=== PATIENT | female | born 1965 | race American Indian/Alaskan Native ===

== ENCOUNTER 2019-02-08 10:31 | Emergency (ER) | payer OTHER ==
[2019-02-08] MEDS ORDERED: ASPIRIN 325 MG TAB PO ONE (10:51)
--- NOTE | 2019-02-08 11:17 | Emergency Department Report ---
ED Palpitations HPI - General Chief Complaint: Arrhythmia/Palpitations Stated Complaint: RAPID HEART RATE Time Seen by Provider: 02/08/19 11:11 Source: patient Mode of arrival: Ambulatory Limitations: No Limitations - History of Present Illness Initial Comments: Mrs. Grimes is a very pleasant 53-year-old female with history of hypertension and diabetes mellitus who presents with a rapid heartbeat. 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 While walking to the unit, she noticed that her heart was beating quite fast. She and her doctor colleague measured her heart rate to be 133 bpm. No previous history of heart disease. No previous history of arrhythmia. She takes nifedipine 30 mg in the morning which she took today. She also takes metformin 500 mg. After eating garlic this morning at home prior, she felt hot in her chest briefly. After drinking water the hotness in her chest subsided. No recent travel. No leg pain. No use of hormone therapy. The symptoms started sudden onset 10 AM. No history of thyroid disease. She's been in her normal state of health until the onset of rapid heartbeat this morning. She has been drinking more coffee more so than normal. She is drinking approximately 16 ounces per day. She does stay hydrated. She denies dark stools. She has been menopausal for the last [address] [place] ALVARENGA Complaint: rapid heart beat, palpitations -: Sudden, This morning Context: occured during exertion Arrythmia History: other (no previous history of arrhythmia or rapid heartbeat) Associated Symptoms: denies other symptoms Treatments Prior to Arrival: other (none) - Related Data Home Medications Medication Instructions Recorded Confirmed Last Taken Aspirin [Aspirin BABY CHEW TAB] 81 mg PO QDAY 04/12/15 04/12/15 04/12/15 Atenolol [Tenormin] 25 mg PO DAILY 04/12/15 04/12/15 04/12/15 Previous Rx's Medication Instructions Recorded Last Taken Type Cyclobenzaprine HCl [Flexeril 5 MG 5 mg PO TID #20 tab 04/12/15 Unknown Rx TAB] Diclofenac EC [Voltaren] 25 mg PO Q8HR #30 tablet 04/12/15 Unknown Rx HYDROcodone/APAP 5-325 [Wilson 1 each PO Q6HR PRN #10 tablet 11/12/18 Unknown Rx 5/325] Metformin HCl [Glucophage] 1,000 mg PO QDAY #30 tab 01/30/18 Unknown Rx Allergies Allergy/AdvReac Type Severity Reaction Status Date / Time No Known Allergies Allergy Unverified 04/12/15 15:54 ED Review of Systems ROS: Stated complaint: RAPID HEART RATE Other details as noted in HPI Comment: All other systems reviewed and negative Constitutional: denies: fever, malaise Respiratory: denies: cough, shortness of breath Cardiovascular: chest pain (felt hot in her chest after eating garlic this morning), palpitations Gastrointestinal: denies: abdominal pain, nausea, vomiting Skin: denies: rash, lesions ED Past Medical Hx - Past Medical History Previous Medical History?: Yes Hx Hypertension: Yes Hx Diabetes: Yes - Surgical History Past Surgical History?: Yes Additional Surgical History: x 3 - Family History Family history: hypertension - Social History Smoking Status: Never Smoker Substance Use Type: None Other Social History: Occupation: optometrist assistant for the [employer] - Medications Home Medications: Home Medications Medication Instructions Recorded Confirmed Last Taken Type Aspirin [Aspirin BABY CHEW TAB] 81 mg PO QDAY 04/12/15 04/12/15 04/12/15 History Atenolol [Tenormin] 25 mg PO DAILY 04/12/15 04/12/15 04/12/15 History Cyclobenzaprine HCl [Flexeril 5 MG 5 mg PO TID #20 tab 04/12/15 Unknown Rx TAB] Diclofenac EC [Voltaren] 25 mg PO Q8HR #30 tablet 04/12/15 Unknown Rx HYDROcodone/APAP 5-325 [Wilson 1 each PO Q6HR PRN #10 tablet 01/30/18 Unknown Rx 5/325] Metformin HCl [Glucophage] 1,000 mg PO QDAY #30 tab 01/30/18 Unknown Rx ED Physical Exam - General Limitations: No Limitations General appearance: alert, in no apparent distress - Head Head exam: Present: atraumatic, normocephalic - Eye Eye exam: Present: normal appearance - ENT ENT exam: Present: mucous membranes moist - Neck Neck exam: Present: normal inspection - Respiratory Respiratory exam: Present: normal lung sounds bilaterally. Absent: respiratory distress - Cardiovascular Cardiovascular Exam: Present: normal rhythm, tachycardia, normal heart sounds. Absent: systolic murmur, diastolic murmur, rubs, gallop - GI/Abdominal GI/Abdominal exam: Present: soft, distended, normal bowel sounds, hernia (small soft umbilical hernia and large surgical scar). Absent: tenderness, guarding, rebound - Extremities Exam Extremities exam: Present: normal inspection - Neurological Exam Neurological exam: Present: alert, oriented X3 - Psychiatric Psychiatric exam: Present: normal affect, normal mood - Skin Skin exam: Present: warm, dry, intact, normal color. Absent: rash ED Course Vital Signs 02/08/19 02/08/19 02/08/19 10:48 11:03 11:07 Temperature 98.3 F Pulse Rate 144 H 146 H 132 H Respiratory 16 14 25 H Rate Blood Pressure 185/109 Blood Pressure 173/108 [Left] O2 Sat by Pulse 95 99 99 Oximetry 02/08/19 02/08/19 02/08/19 11:16 11:32 11:46 Temperature Pulse Rate 126 H 128 H 117 H Respiratory 20 25 H 21 Rate Blood Pressure 173/108 173/108 165/100 Blood Pressure [Left] O2 Sat by Pulse 99 99 Oximetry 02/08/19 02/08/19 02/08/19 12:24 12:30 12:46 Temperature Pulse Rate 119 H 114 H 118 H Respiratory 20 20 24 Rate Blood Pressure 165/100 168/104 153/89 Blood Pressure [Left] O2 Sat by Pulse 97 99 Oximetry 02/08/19 02/08/19 13:44 13:45 Temperature Pulse Rate 107 H 103 H Respiratory 22 16 Rate Blood Pressure 153/89 148/92 Blood Pressure [Left] O2 Sat by Pulse 99 98 Oximetry ED Medical Decision Making - Lab Data Result diagrams: 02/08/19 11:11 02/08/19 11:11 - EKG Data 02/08/19 11:17 EKG obtained 1044 Sinus tachycardia rate 140 beats a minute left axis deviation normal QT interval enlarged P waves indicating atrial enlargement no signs of ischemia no significant ST elevation - Radiology Data Radiology results: report reviewed CT abdomen and pelvis revealed cholelithiasis without CT evidence of acute cholecystitis, enlarged fatty liver colonic diverticulosis multiple ventral hernias CT angiogram: No evidence of pulmonary embolism, no acute findings - Medical Decision Making Mrs. Grimes presents with significant tachycardia and palpitations. EKG reveals sinus tachycardia. Differential diagnosis includes dehydration, sepsis, hyperthyroidism, myocardial ischemia, pulmonary embolism, medication withdrawal, anxiety Troponin x 2 negative. D-dimer negative. With IV fluid: Tachycardia improved. Abnormally elevated hemoglobin and hematocrit with mild metabolic acidosis both correspond to the diagnosis of dehydration. No evidence of pulmonary embolus or ACS. TSH is normal. Strongly encouraged follow-up with Dr. Be within the next few days. Critical care attestation.: If time is entered above; I have spent that time in minutes in the direct care of this critically ill patient, excluding procedure time. ED Disposition Clinical Impression: Tachycardia, Palpitations Disposition: DC- TO HOME OR SELFCARE Is pt being admited?: No Does the pt Need Aspirin: No Condition: Stable Instructions: Atrial Tachycardia (ED) Referrals: CLARE BE MD [Staff Physician] - 3-5 Days Forms: Work/School Release Form(ED)
[2019-02-08 11:31] LABS: Basophils % (Auto) 0.5 % (0.0-1.8); Eosinophils % (Auto) 0.2 % (0.0-4.3); Hematocrit 46.7 % (30.3-42.9); Hemoglobin 16.3 gm/dl (10.1-14.3); Lymphocytes # (Auto) 2.2 K/mm3 (1.2-5.4); Lymphocytes % (Auto) 29.9 % (13.4-35.0); Mean Corpuscular HGB Conc 35 % (30-34); Mean Corpuscular Volume 82 fl (79-97); Monocytes # (Auto) 0.6 K/mm3 (0.0-0.8); Monocytes % (Auto) 8.3 % (0.0-7.3); Platelet Count 263 K/mm3 (140-440); Red Blood Count 5.67 M/mm3 (3.65-5.03); Red Cell Distribution Width 14.5 % (13.2-15.2)
[2019-02-08 11:55] LABS: BUN/Creatinine Ratio 13; Blood Urea Nitrogen 8 mg/dL (7-17); Calcium 9.7 mg/dL (8.4-10.2); Hemolysis Index 5
--- NOTE | 2019-02-08 12:31 | XRay Report ---
CHEST 1 VIEW 02/08/2019 11:06 AM INDICATION / CLINICAL INFORMATION: Chest Pain. COMPARISON: None available. FINDINGS: SUPPORT DEVICES: None. HEART / MEDIASTINUM: No significant abnormality. LUNGS / PLEURA: Lung volumes are reduced with probable bibasilar atelectasis. The upper lungs are lois ar. No significant pleural effusion. No pneumothorax. ADDITIONAL FINDINGS: No significant additional findings. IMPRESSION: Low lung volumes with probable bibasilar atelectasis. A CT of the chest is pending. Signer Name: Charly Acosta MD Signed: 02/08/2019 12:27 PM Workstation Name: [id number]
[2019-02-08] MEDS ORDERED: SODIUM CHLORIDE 0.9% 1000 ML 1,000 ML IV ONE (13:28)
--- NOTE | 2019-02-08 13:49 | Cat Scan Report ---
CTA CHEST WITH IV CONTRAST INDICATION: severe tachycardia. TECHNIQUE: Axial CT images were obtained through the chest after injection of 100 mL Omnipaque 350 IV contrast. 3 plane MIP reconstructions were produced. All CT scans at this location are performed using CT dose reduction for ALARA by means of automated exposure control. COMPARISON: None available. FINDINGS: Pulmonary Arteries: No pulmonary emboli. Lungs: There is mild dependent atelectasis in the posterior aspect of the lung bases without focal co nsolidation. There is no pleural effusion or pneumothorax. Trachea and Bronchi: No significant abnormality. Heart and Pericardium: No significant abnormality. Vasculature: No significant abnormality. Lymphatics: No lymphadenopathy. Additional Findings: None. Upper Abdomen: No acute findings. Skeletal Structures: No significant osseous abnormality. IMPRESSION: 1. No CT evidence for pulmonary embolism. 2. No acute findings. Signer Name: Brendan Panda MD Signed: 02/08/2019 1:44 PM Workstation Name: [id number]
--- NOTE | 2019-02-08 13:51 | Cat Scan Report ---
CT ABDOMEN AND PELVIS WITH CONTRAST INDICATION: abdominal distention. COMPARISON: 2 views of the abdomen from 01/30/2018. TECHNIQUE: Axial, coronal and sagittal CT imaging of the abdomen and pelvis was performed after inje ction of 100 mL Omnipaque [address] scans at this location are performed using CT dose re duction for ALARA by means of automated exposure control. FINDINGS: LOWER CHEST: No significant abnormality. LIVER: There is generalized steatosis. The liver is enlarged and measures 21 cm in length. No other s ignificant abnormality is seen. BILIARY: Multiple gallstones are noted without evidence of acute cholecystitis. There is no biliary d uctal dilatation. PANCREAS: No significant abnormality. SPLEEN: No significant abnormality. ADRENALS: No significant abnormality. KIDNEYS AND URETERS: No significant abnormality. GI TRACT: No significant abnormality is seen along the stomach or small bowel. There is generalized c olonic diverticulosis without evidence of diverticulitis or other significant abnormalities of the co berta. The appendix is unremarkable. Rectus diastasis is noted with multiple ventral hernias containing fat. The largest hernia measures 6.7 cm in transverse dimension. PERITONEUM: No free fluid. No free air. No fluid collection. LYMPH NODES: No significant adenopathy. VASCULATURE: No significant abnormality. URINARY BLADDER: No significant abnormality. REPRODUCTIVE ORGANS: No significant abnormality. ADDITIONAL FINDINGS: None. SKELETAL SYSTEM: Degenerative changes are seen along the lumbar spine and SI joints without an acute abnormality. IMPRESSION: 1. No acute abnormality of the abdomen or pelvis. 2. Cholelithiasis without CT evidence of acute cholecystitis. 3. Additional findings as above. Signer Name: Charly Acosta MD Signed: 02/08/2019 1:47 PM Workstation Name: [id number]
[2019-02-08 15:06] VITALS: BP 137/86
== END 2019-02-08 14:54 | disposition home or self-care (01) ==
LOC: ED 10:31
DX: R00.0 Tachycardia, unspecified (principal); R00.2 Palpitations; E86.0 Dehydration
CPT/HCPCS: 36415; 71045; 71275; 74177; 80048; 83880; 84443; 84484; 85025; 85379; 93005; 93010; 96360; 99285; J7030; Q9967

== ENCOUNTER 2019-02-11 09:06 | Inpatient (IN) | payer OTHER ==
--- NOTE | 2019-02-11 09:39 | XRay Report ---
CHEST 2 VIEWS INDICATION / CLINICAL INFORMATION: Chest pain since . COMPARISON: None available. FINDINGS: SUPPORT DEVICES: None. HEART / MEDIASTINUM: No significant abnormality. LUNGS / PLEURA: Lung volumes are reduced with probable bibasilar atelectasis. The lungs are otherwise clear. No significant pleural effusion. No pneumothorax. ADDITIONAL FINDINGS: No significant additional findings. IMPRESSION: Reduced lung volumes with probable bibasilar atelectasis. Signer Name: Charly Acosta MD Signed: 02/11/2019 9:34 AM Workstation Name: [id number]
[2019-02-11 09:54] LABS: Basophils % (Auto) 0.4 % (0.0-1.8); Eosinophils % (Auto) 0.1 % (0.0-4.3); Hematocrit 46.2 % (30.3-42.9); Hemoglobin 15.9 gm/dl (10.1-14.3); Lymphocytes # (Auto) 1.4 K/mm3 (1.2-5.4); Lymphocytes % (Auto) 23.4 % (13.4-35.0); Mean Corpuscular HGB Conc 34 % (30-34); Mean Corpuscular Volume 84 fl (79-97); Monocytes # (Auto) 0.4 K/mm3 (0.0-0.8); Platelet Count 255 K/mm3 (140-440); Red Blood Count 5.52 M/mm3 (3.65-5.03); Red Cell Distribution Width 14.7 % (13.2-15.2)
[2019-02-11 10:19] LABS: BUN/Creatinine Ratio 13; Blood Urea Nitrogen 8 mg/dL (7-17); Calcium 9.9 mg/dL (8.4-10.2); Hemolysis Index 10
[2019-02-11] MEDS ORDERED: ASPIRIN 325 MG TAB PO ONE (11:42)
[2019-02-11] MEDS ORDERED: NITROGLYCERIN 0.4 MG TAB SUBL SL ONE (11:42)
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
[2019-02-11 11:47] LABS: Bilirubin,Urine NEG (Negative); Blood,Urine NEG (Negative); Color,Urine Colorless (Yellow); Protein,Urine <15 mg/dL mg/dL (Negative); RBC,Urine < 1.0 /HPF (0.0-6.0); Urobilinogen,Urine < 2.0 mg/dL (<2.0); WBC,Urine < 1.0 /HPF (0.0-6.0)
[2019-02-11 12:00] LABS: Alanine Aminotransferase 24 units/L (7-56); Albumin 4.9 g/dL (3.9-5)
[2019-02-11 12:01] LABS: Bilirubin,Direct < 0.2 mg/dL (0-0.2)
[2019-02-11 12:07] LABS: INR 0.97 (0.87-1.13); Partial Thromboplastin Time 25.9 Sec. (24.2-36.6)
[2019-02-11 12:11] LABS: Amphetamine Screen,Urine PRESUMPTIVE NEGATIVE; Benzodiazepines Screen,Urine PRESUMPTIVE NEGATIVE; Cannabinoid Screen,Urine PRESUMPTIVE NEGATIVE; Cocaine Screen,Urine PRESUMPTIVE NEGATIVE; Methadone Screen,Urine PRESUMPTIVE NEGATIVE; Opiate Screen,Urine PRESUMPTIVE NEGATIVE
[2019-02-11] MEDS ORDERED: MORPHINE 2 MG/1 ML INJ IV PRN (21:28)
--- NOTE | 2019-02-11 21:28 | History and Physical Report ---
History of Present Illness Date of examination: 02/11/19 Date of admission: 02/11/19 12:22 Chief complaint: Chest pain for one day History of present illness: Patient is a 53-year-old lady who has a history of hypertension and diabetes mellitus was initially seen in this hospital's ED on 02/08/2019 for palpitation and tachycardia. Chest x-ray shows bilateral basal atelectasis for which CT scan of the chest was ordered. Findings were unremarkable. CTA was negative for any PE. CT abdomen and pelvis showed cholelithiasis without any cholecystitis. EKG shows sinus tachycardia at 133/ minutes. Blood pressure on admission at the time was 165/100. Patient was treated and appropriate medications with control of her blood pressure and heart rate. Discharge from the ED and followed up with me thereafter on 02/08/2019. Blood pressure on home was still elevated to 160s with intermittent palpitations and tachycardia. Patient was commenced on Cardizem and metoprolol and was advised to follow with me within 3 days in the office with blood pressure heart rate log. Patient stopped her metoprolol yesterday as blood pressure was consistently normal within 118 -120s and heart rate in the 70s. Patient stopped her metoprolol stating that she felt that a blood pressure in the 118s was too low. Presented to the emergency department today, 02/11/19 with tachycardia and hypertension of 228/135 and HR 90s with associated chest pain that was dull in nature. No rigidity. Intermittent but currently chest pain-free. Denies any diaphoresis. Has associated shortness of breath. Chest x-ray that showed bibasilar atelectasis was noted in the previous discharge with a normal CT of the chest. Patient was admitted today for further evaluation and stress test that was not done previously. Past History Past Medical History: diabetes, hypertension Past Surgical History: No surgical history Social history: denies: smoking, alcohol abuse, prescription drug abuse Family history: no significant family history Medications and Allergies Allergies Allergy/AdvReac Type Severity Reaction Status Date / Time No Known Allergies Allergy Unverified 04/12/15 15:54 Home Medications Medication Instructions Recorded Confirmed Last Taken Type Aspirin [Aspirin BABY CHEW TAB] 81 mg PO QDAY 04/12/15 02/11/19 02/11/19 History AtorvaSTATin [Lipitor] 10 mg PO QHS 02/11/19 02/11/19 Unknown History Metformin HCl [Glucophage] 500 mg PO BID 02/11/19 02/11/19 02/11/19 History Metoprolol Xl [Metoprolol 100 mg PO QDAY 02/11/19 02/11/19 02/11/19 History SUCCINATE ER TAB] dilTIAZem CD [Cardizem Cd] 120 mg PO DAILY 02/11/19 02/11/19 02/10/19 History Active Meds: Active Medications Pneumococcal Polyvalent Vaccine (Pneumovax 23) 0.5 ml IM .ONCE ONE Stop: 02/12/19 12:01 Review of systems Constitutional: Well Nourished and Well developed. Head: NC/ AT Eyes: Denies any visual impairments. No discharge from the eyes Nose: Denies any rhinorrhea or epistaxis Throats: Denies any post nasal drainage. Ears: Denies any hearing deficits Cardiovascular system: As chest pain, with shortness of breath, no orthopnea, paroxysmal nocturnal dyspnea, or palpitation. Respiratory system: Denies any cough, difficulty breathing, wheezing, pleuritic chest pain, Gastrointestinal system: Denies any abdominal pain, nausea vomiting, hematemesis or melena. Neurological system: Denies any headache, slurred speech, facial droop, lateralizing weakness Genitalia system: Denies any dysuria, urinary frequency or urgency, urethral discharge Skin: No rashes, hyperpigmented spots. Hematological: Denies any cervical tenderness hemorrhages or petechia. Immunological: Denies any multiple septic spots, Lymphatic: Denies any generalized lymphadenopathy. Endocrine: Denies any polyuria, polydipsia, polyphagia. No heat or cold intolerance. Musculoskeletal system: No joint pain or swelling. Psych: No visual, tactile, auditory or hallucination Exam - Physical Exam Narrative exam: Constitutional: Well-nourished well-developed. In no distress Head: Normocephalic atraumatic Eyes: Pupils are equal round and reactive to light Nose: No enlarged turbinates, no septal deviation. Mouth: Moist mucous membranes. Neck: Supple no thyromegaly. No bruit. No JVD Heart: Regular rate and rhythm, S1-S2 normal. No rubs murmurs or gallop Lungs: Clear to auscultation bilaterally. no rales or rhonchi Abdomen: Soft, nontender. Bowel sound are present. Extremities: No edema, no cyanosis, no clubbing. Neuro: Alert oriented Oriented x3. No focal sensory or motor deficit. Skin: No rashes or hyperpigmented spots Musculoskeletal system: No joint pain or swelling Hematological: No petechia or subcutanous hemorrhages. Immunological: No multiple septic spots on the skin Lymphatic: No generalized lymphadenopathy Psychiatry: Euthymic. Calm. - Constitutional Vitals: Temp Pulse Resp BP Pulse Ox 98.2 F 78 16 120/83 98 02/11/19 20:12 02/11/19 20:12 02/11/19 20:12 02/11/19 20:12 02/11/19 20:12 Results - Labs CBC & Chem 7: 02/11/19 09:30 02/11/19 09:30 Labs: Abnormal lab results 02/11/19 02/11/19 02/11/19 Range/Units 09:30 09:30 11:04 RBC 5.52 H (3.65-5.03) M/mm3 Hgb 15.9 H (10.1-14.3) gm/dl Hct 46.2 H (30.3-42.9) % Carbon Dioxide 20 L (22-30) mmol/L Creatinine 0.6 L (0.7-1.2) mg/dL Glucose 194 H (65-100) mg/dL Urine pH 8.0 H (5.0-7.0) Ur Specific [place] 1.001 L (1.003-1.030) Assessment and Plan Patient is a 53-year-old lady who has a history of hypertension and diabetes mellitus was initially seen in this hospital's ED on 02/08/2019 for palpitation and tachycardia. Chest x-ray shows bilateral basal atelectasis for which CT scan of the chest was ordered. Findings were unremarkable. CTA was negative for any PE. CT abdomen and pelvis showed cholelithiasis without any cholecystitis. EKG shows sinus tachycardia at 133/ minutes. Blood pressure on admission at the time was 165/100. Patient was treated and appropriate medications with control of her blood pressure and heart rate. Discharge from the ED and followed up with me thereafter on 02/08/2019. Blood pressure on home was still elevated to 160s with intermittent palpitations and tachycardia. Patient was commenced on Cardizem and metoprolol and was advised to follow with me within 3 days in the office with blood pressure heart rate log. Patient stopped her metoprolol yesterday as blood pressure was consistently normal within 118 -120s and heart rate in the 70s. Patient stopped her metoprolol stating that she felt that a blood pressure in the 118s was too low. Presented to the emergency department today, 02/11/19 with tachycardia and hypertension of 228/135 and HR 90s with associated chest pain that was dull in nature. No rigidity. Intermittent but currently chest pain-free. Denies any diaphoresis. Has associated shortness of breath. Chest x-ray that showed bibasilar atelectasis was noted in the previous discharge with a normal CT of the chest. Patient was admitted today for further evaluation and stress test that was not done previously. - Chest pain Rule out acute coronary syndrome Troponin level 3 every 6 Patient on oxygen nitroglycerin as well as on morphine and beta kimmie Stress test in the morning - Hypertensive emergency Cardizem and metoprolol because of sinus tachycardia despite normal TSH level - Palpitations Continue beta kimmie and is general kimmie -DVT prophylaxis with Lovenox -CODE STATUS: Patient is full code - Disposition: Stresses in the morning if hydrated continued to maintain a sinus Gregg discharge -
[2019-02-11] MEDS ORDERED: DEXTROSE 50% IN WATER (25GM) 50 ML SYRINGE IV PRN (21:38)
[2019-02-11] MEDS ORDERED: METFORMIN HCL 500 MG PO SCH (22:00)
[2019-02-11] MEDS: dilTIAZem CD 120 MG CAP PO SCH (22:16)
[2019-02-11] MEDS: metFORMIN 500 MG TAB PO SCH (22:19)
[2019-02-11] MEDS: METOPROLOL SUCCINATE XL 100 MG TAB PO SCH (22:19)
[2019-02-11] MEDS: SODIUM CHLORIDE 0.45% 1000 ML 1,000 ML IV SCH (22:24)
[2019-02-12 00:18] LABS: Basophils % (Auto) 0.3 % (0.0-1.8); Eosinophils % (Auto) 0.4 % (0.0-4.3); Hematocrit 43.7 % (30.3-42.9); Lymphocytes # (Auto) 2.2 K/mm3 (1.2-5.4); Lymphocytes % (Auto) 38.9 % (13.4-35.0); Mean Corpuscular HGB Conc 34 % (30-34); Mean Corpuscular Volume 84 fl (79-97); Monocytes # (Auto) 0.7 K/mm3 (0.0-0.8); Monocytes % (Auto) 12.2 % (0.0-7.3); Platelet Count 244 K/mm3 (140-440); Red Blood Count 5.22 M/mm3 (3.65-5.03); Red Cell Distribution Width 14.7 % (13.2-15.2)
[2019-02-12 00:22] LABS: INR 1.05 (0.87-1.13)
[2019-02-12 01:33] LABS: BUN/Creatinine Ratio 14; Blood Urea Nitrogen 10 mg/dL (7-17); Calcium 9.4 mg/dL (8.4-10.2); Hemolysis Index 4
[2019-02-12 03:28] LABS: HDL Cholesterol 51 mg/dL (40-59); LDL Cholesterol,Direct 80 mg/dL (50-130)
[2019-02-12] MEDS: NITROGLYCERIN 2% OINT 1 GM TP SCH ×2 (05:08→13:11)
[2019-02-12] MEDS ORDERED: REGADENOSON 0.4 MG/5 ML INJ IV ONE ×2 (07:10→08:53)
[2019-02-12 07:47] LABS: Basophils % (Auto) 0.4 % (0.0-1.8); Eosinophils % (Auto) 0.3 % (0.0-4.3); Hemoglobin 15.1 gm/dl (10.1-14.3); Lymphocytes # (Auto) 1.9 K/mm3 (1.2-5.4); Lymphocytes % (Auto) 33.6 % (13.4-35.0); Mean Corpuscular HGB Conc 35 % (30-34); Mean Corpuscular Volume 83 fl (79-97); Monocytes # (Auto) 0.5 K/mm3 (0.0-0.8); Monocytes % (Auto) 8.8 % (0.0-7.3); Platelet Count 247 K/mm3 (140-440); Red Blood Count 5.17 M/mm3 (3.65-5.03); Red Cell Distribution Width 14.5 % (13.2-15.2)
[2019-02-12 07:55] LABS: INR 1.02 (0.87-1.13)
[2019-02-12 08:17] LABS: Alanine Aminotransferase 21 units/L (7-56); Albumin 4.3 g/dL (3.9-5); BUN/Creatinine Ratio 15; Blood Urea Nitrogen 9 mg/dL (7-17); Calcium 9.4 mg/dL (8.4-10.2); Hemolysis Index 6
[2019-02-12] MEDS: metFORMIN 500 MG TAB PO SCH (08:24)
--- NOTE | 2019-02-12 09:16 | Progress Note ---
Assessment and Plan Patient is a 53-year-old lady who has a history of hypertension and diabetes mellitus was initially seen in this hospital's ED on 02/08/2019 for palpitation and tachycardia. Chest x-ray shows bilateral basal atelectasis for which CT scan of the chest was ordered. Findings were unremarkable. CTA was negative for any PE. CT abdomen and pelvis showed cholelithiasis without any cholecystitis. EKG shows sinus tachycardia at 133/ minutes. Blood pressure on admission at the time was 165/100. Patient was treated and appropriate medica tions with control of her blood pressure and heart rate. Discharge from the ED and followed up with me thereafter on 02/08/2019. Blood pressure on home was still elevated to 160s with intermittent palpitations and tachycardia. Patient was commenced on Cardizem and metoprolol and was advised to follow with me within 3 days in the office with blood pressure heart rate log. Patient stopped her metoprolol yesterday as blood pressure was consistently normal within 118 -120s and heart rate in the 70s. Patient stopped her metoprolol stating that she felt that a blood pressure in the 118s was too low. Presented to the emergency department today, 02/11/19 with tachycardia and hypertension of 228/135 and HR 90s with associated chest pain that was dull in nature. No rigidity. Intermittent but currently chest pain-free. Denies any diaphoresis. Has associated shortness of breath. Chest x-ray that showed bibasilar atelectasis was noted in the previous discharge with a normal CT of the chest. Patient was admitted today for further evaluation and stress test that was not done previously. - Chest pain Rule out acute coronary syndrome Troponin level 3 every 6 Patient on oxygen nitroglycerin as well as on morphine and beta kimmie Stress test in the morning. If normal will d/c - Hypertensive emergency -controlled Continue with Cardizem and metoprolol because of sinus tachycardia and palpitation despite normal TSH level - Palpitations Continue beta kimmie and CCB -DVT prophylaxis with Lovenox -CODE STATUS: Patient is full code - Disposition: Stresses in the morning if nl and pt continues to maintain a sinus will discharge - Subjective Date of service: 02/12/19 Principal diagnosis: chest pain, malignant HTN Interval history: No more chest pain Objective - Exam Narrative Exam: Constitutional: Well-nourished well-developed. In no distress Head: Normocephalic atraumatic Eyes: Pupils are equal round and reactive to light Nose: No enlarged turbinates, no septal deviation. Mouth: Moist mucous membranes. Neck: Supple no thyromegaly. No bruit. No JVD Heart: Regular rate and rhythm, S1-S2 normal. No rubs murmurs or gallop Lungs: Clear to auscultation bilaterally. no rales or rhonchi Abdomen: Soft, nontender. Bowel sound are present. Extremities: No edema, no cyanosis, no clubbing. Neuro: Alert oriented Oriented x3. No focal sensory or motor deficit. Skin: No rashes or hyperpigmented spots Musculoskeletal system: No joint pain or swelling Hematological: No petechia or subcutanous hemorrhages. Immunological: No multiple septic spots on the skin Lymphatic: No generalized lymphadenopathy Psychiatry: Euthymic. Calm. - Constitutional Vitals: Vital Signs - 12hr 02/11/19 02/11/19 02/12/19 22:16 22:19 00:32 Temperature 98.9 F Pulse Rate 80 80 73 Pulse Rate [ Apical] Pulse Rate [ From Monitor] Respiratory 24 Rate Blood Pressure 120/83 120/83 150/90 O2 Sat by Pulse 100 Oximetry 02/12/19 02/12/19 02/12/19 00:49 02:00 04:43 Temperature 98.7 F Pulse Rate 67 75 Pulse Rate [ 80 Apical] Pulse Rate [ 80 From Monitor] Respiratory 20 20 Rate Blood Pressure 119/77 O2 Sat by Pulse 98 94 Oximetry 02/12/19 02/12/19 05:08 08:24 Temperature Pulse Rate 70 72 Pulse Rate [ Apical] Pulse Rate [ From Monitor] Respiratory Rate Blood Pressure 119/77 O2 Sat by Pulse Oximetry - Labs CBC & Chem 7: 02/12/19 06:47 02/12/19 06:47 Labs: Abnormal lab results 02/11/19 02/11/19 02/11/19 Range/Units 09:30 09:30 11:04 RBC 5.52 H (3.65-5.03) M/mm3 Hgb 15.9 H (10.1-14.3) gm/dl Hct 46.2 H (30.3-42.9) % MCHC (30-34) % Lymph % (Auto) (13.4-35.0) % [place] % (Auto) (0.0-7.3) % Carbon Dioxide 20 L (22-30) mmol/L Creatinine 0.6 L (0.7-1.2) mg/dL Glucose 194 H (65-100) mg/dL Hemoglobin A1c (4-6) % Urine pH 8.0 H (5.0-7.0) Ur Specific [place] 1.001 L (1.003-1.030) 02/11/19 02/11/19 02/11/19 Range/Units 23:00 23:00 23:00 RBC 5.22 H (3.65-5.03) M/mm3 Hgb 15.0 H (10.1-14.3) gm/dl Hct 43.7 H (30.3-42.9) % MCHC (30-34) % Lymph % (Auto) 38.9 H (13.4-35.0) % [place] % (Auto) 12.2 H (0.0-7.3) % Carbon Dioxide (22-30) mmol/L Creatinine (0.7-1.2) mg/dL Glucose 117 H (65-100) mg/dL Hemoglobin A1c 6.9 H (4-6) % Urine pH (5.0-7.0) Ur Specific [place] (1.003-1.030) 02/12/19 02/12/19 Range/Units 06:47 06:47 RBC 5.17 H (3.65-5.03) M/mm3 Hgb 15.1 H (10.1-14.3) gm/dl Hct 43.0 H (30.3-42.9) % MCHC 35 H (30-34) % Lymph % (Auto) (13.4-35.0) % [place] % (Auto) 8.8 H (0.0-7.3) % Carbon Dioxide (22-30) mmol/L Creatinine 0.6 L (0.7-1.2) mg/dL Glucose 123 H (65-100) mg/dL Hemoglobin A1c (4-6) % Urine pH (5.0-7.0) Ur Specific [place] (1.003-1.030)
[2019-02-12] MEDS ORDERED: ASPIRIN EC 325 MG TAB PO SCH (10:00)
[2019-02-12] MEDS: METOPROLOL SUCCINATE XL 100 MG TAB PO SCH (11:55)
[2019-02-12] MEDS: dilTIAZem CD 120 MG CAP PO SCH (11:56)
[2019-02-12] MEDS: SODIUM CHLORIDE 0.45% 1000 ML 1,000 ML IV SCH (11:56)
[2019-02-12] MEDS ORDERED: PNEUMOCOCCAL 23 Valent 0.5 ML VIAL IM ONE (12:00)
[2019-02-12 13:49] VITALS: BP 123/90
--- NOTE | 2019-02-12 16:41 | Discharge Summary ---
Providers - Providers Date of Admission: 02/11/19 12:22 Date of discharge: 02/12/19 Attending physician: CLARE BURGESS 02/11/19 Consult to Cardiac Rehabilitation [CONS] Routine Reason For Exam: Phase I Primary care physician: CLARE BURGESS Hospitalization Condition: Stable Pertinent studies: EKG CXR Procedures: none Hospital course: Patient is a 53-year-old lady who has a history of hypertension and diabetes mellitus was initially seen in this hospital's ED on 02/08/2019 for palpitation and tachycardia. Chest x-ray shows bilateral basal atelectasis for which CT scan of the chest was ordered. Findings were unremarkable. CTA was negative for any PE. CT abdomen and pelvis showed cholelithiasis without any cholecystitis. EKG shows sinus tachycardia at 133/ minutes. Blood pressure on admission at the time was 165/100. Patient was treated and appropriate medications with control of her blood pressure and heart rate. Discharge from the ED and followed up with me thereafter on 02/08/2019. Blood pressure on home was still elevated to 160s with intermittent palpitations and tachycardia. Patient was commenced on Cardizem and metoprolol and was advised to follow with me within 3 days in the office with blood pressure heart rate log. Patient stopped her metoprolol yesterday as blood pressure was consistently normal within 118 -120s and heart rate in the 70s. Patient stopped her metoprolol stating that she felt that a blood pressure in the 118s was too low. Presented to the emergency department today, 02/11/19 with tachycardia and hypertension of 228/135 and HR 90s with associated chest pain that was dull in nature. No rigidity. Intermittent but currently chest pain-free. Denies any diaphoresis. Has associated shortness of breath. Chest x-ray that showed bibasilar atelectasis was noted in the previous discharge with a normal CT of the chest. Patient was admitted today for further evaluation and stress test that was not done previously. BP and heart rate was optimized with meds. Stress test was done. Result was negative for any ischemia. BP controlled. pt dischawrge and advised to be compliant with her meds and f/u with PCP in 3-5 days Disposition: DC-01 TO HOME OR SELFCARE Time spent for discharge: 36 mins - Discharge Diagnoses (1) Chest pain Status: Acute Qualifiers: Chest pain type: unspecified Qualified Code(s): R07.9 - Chest pain, unspecified (2) Malignant hypertension Status: Acute (3) Palpitations Status: Acute (4) SOB (shortness of breath) Status: Acute Core Measure Documentation - Palliative Care Palliative Care/ Comfort Measures: Not Applicable - Core Measures Any of the following diagnoses?: none Exam - Physical Exam Narrative exam: Constitutional: Well-nourished well-developed. In no distress Head: Normocephalic atraumatic Eyes: Pupils are equal round and reactive to light Nose: No enlarged turbinates, no septal deviation. Mouth: Moist mucous membranes. Neck: Supple no thyromegaly. No bruit. No JVD Heart: Regular rate and rhythm, S1-S2 normal. No rubs murmurs or gallop Lungs: Clear to auscultation bilaterally. no rales or rhonchi Abdomen: Soft, nontender. Bowel sound are present. Extremities: No edema, no cyanosis, no clubbing. Neuro: Alert oriented Oriented x3. No focal sensory or motor deficit. Skin: No rashes or hyperpigmented spots Musculoskeletal system: No joint pain or swelling Hematological: No petechia or subcutanous hemorrhages. Immunological: No multiple septic spots on the skin Lymphatic: No generalized lymphadenopathy Psychiatry: Euthymic. Calm. - Constitutional Vitals: Temp Pulse Resp BP Pulse Ox 98.3 F 72 18 123/90 96 02/12/19 13:39 02/12/19 13:39 02/12/19 13:39 02/12/19 13:39 02/12/19 13:39 Plan Activity: fall precautions Weight Bearing Status: Weight Bear as Tolerated Diet: regular Follow up with: CLARE BURGESS MD [Primary Care Provider] - 7 Days Forms: Work/School Release Form Prescriptions: Aspirin [Aspirin BABY CHEW TAB] 81 mg PO QDAY #30 AtorvaSTATin 10 mg PO QHS #30 dilTIAZem CD [Cardizem CD] 120 mg PO DAILY #30 cap Metformin HCl [Glucophage] 500 mg PO BID #60 Metoprolol Xl [Metoprolol SUCCINATE ER TAB] 100 mg PO QDAY #30
--- NOTE | 2019-02-12 17:07 | Treadmill Report ---
SINGLE ISOTOPE DUAL STUDY MYOCARDIAL PERFUSION SCAN AGE: 53 years. SEX: Female. REFERRING PHYSICIAN: Moira Be MD DESCRIPTION OF PROCEDURE: The patient received 10 mCi of technetium 99m Myoview intravenously under resting conditions. Resting myocardial perfusion scan was done. Subsequently, the patient underwent Lexiscan stress test as per the protocol. During Lexiscan stress, the patient received 28 mCi of technetium 99m Myoview intravenously. After 30-60 minutes, post stress images were done. Computerized reconstruction images were performed for analysis. The post-stress images did not reveal any perfusion abnormality. Cinematic display of the gated study did not reveal any wall motion abnormality. The left ventricular ejection fraction was normal and was calculated to be 57% The resting images were also normal. CONCLUSION: 1. No perfusion abnormality of the left ventricular myocardium was demonstrated in the resting as well as stress images obtained after the patient underwent Lexiscan stress test. 2. No wall motion abnormality. 3. Normal left ventricular systolic function with LVEF of 57%. JOB# [id number] [facility]
== END 2019-02-12 17:00 | disposition home or self-care (01) | DRG 305 ==
LOC: ED 09:06 → 4A 12:22
PROVIDERS: ADMIT Internal Medicine; ATTEND Family Medicine
PROC: 3E0234Z Introduction of Serum, Toxoid and Vaccine into Muscle, Percutaneous Approach (ICD-10-PCS; principal; 2019-02-12)
DX: I16.1 Hypertensive emergency (principal); J98.11 Atelectasis; E11.9 Type 2 diabetes mellitus without complications; R07.9 Chest pain, unspecified; I10 Essential (primary) hypertension; Z23 Encounter for immunization; Z79.82 Long term (current) use of aspirin; Z79.899 Other long term (current) drug therapy; Z79.84 Long term (current) use of oral hypoglycemic drugs
CPT/HCPCS: 36415; 71046; 78452; 80048; 80053; 80061; 80076; 80307; 81001; 82962; 83036; 83735; 84100; 84443; 84484; 85025; 85379; 85610; 85730; 90732; 93005; 93010; 93017; 96365; G0378; A9270-GY; A9502; J2785; J7030